=== PATIENT | male | born 1985 | race Hispanic/Latino ===

== ENCOUNTER 2021-02-03 06:04 | Emergency (ER) | payer SELFPAY ==
[2021-02-03 06:11] VITALS: BP 125/79
[2021-02-03] MEDS ORDERED: dexAMETHasone 4 MG/ML VIAL IM STA (10:44)
[2021-02-03] MEDS ORDERED: KETOROLAC 60 MG/2 ML INJ IM ONE (10:44)
--- NOTE | 2021-02-03 11:06 | Emergency Department Report ---
ED General Adult HPI - General Chief complaint: Extremity Injury, Lower Stated complaint: LT ANKLE PAIN Time Seen by Provider: 02/03/21 07:22 Source: patient Mode of arrival: Ambulatory Limitations: No Limitations - History of Present Illness Initial comments: 35-year-old male patient presents with complaints of sudden onset of left ankle pain starting last night. He denies any injury, numbness/tingling, or skin changes. He states the ankle is swollen and rates his pain as a 10/10 in severity. Pain worsens with movement, touch, and ambulation. Patient states Tylenol is not helping with this pain. He denies any history of gout or cancer or fever/chills/sweats. -: Sudden - Related Data Previous Rx's Medication Instructions Recorded Last Taken Type Naproxen 500 mg PO BID PRN 10 Days #20 02/03/21 Unknown Rx tablet Allergies Allergy/AdvReac Type Severity Reaction Status Date / Time No Known Allergies Allergy Unverified 02/03/21 06:08 ED Review of Systems ROS: Stated complaint: LT ANKLE PAIN Other details as noted in HPI Cardiovascular: denies: chest pain Genitourinary: denies: urgency, dysuria, hematuria, discharge, testicular pain Musculoskeletal: joint swelling, arthralgia Skin: denies: rash, lesions, change in color Neurological: abnormal gait. denies: numbness, paresthesias ED Past Medical Hx - Past Medical History Previous Medical History?: No - Surgical History Past Surgical History?: Yes Additional Surgical History: l arm (plat and pins), r ankle, left forefinger - Social History Smoking Status: Current Every Day Smoker Substance Use Type: Marijuana - Medications Home Medications: Home Medications Medication Instructions Recorded Confirmed Last Taken Type Naproxen 500 mg PO BID PRN 10 Days #20 02/03/21 Unknown Rx tablet ED Physical Exam - General Limitations: No Limitations General appearance: alert, in no apparent distress, obese - Head Head exam: Present: atraumatic, normocephalic - Eye Eye exam: Present: normal appearance - Respiratory Respiratory exam: Absent: respiratory distress - Cardiovascular Cardiovascular Exam: Present: regular rate, normal rhythm - Expanded Lower Extremity Exam Left Ankle exam: Present: tenderness (Medial ankle), swelling (Mild warmth to joint noted). Absent: ecchymosis, deformity, erythema Foot/Toe exam: Present: full ROM Neuro vascular tendon exam: Absent: pulse deficit, sensory deficit, pallor Gait: Positive: unable to bear weight - Neurological Exam Neurological exam: Present: alert, oriented X3 - Psychiatric Psychiatric exam: Present: normal affect, normal mood - Skin Skin exam: Present: warm, dry, intact, normal color. Absent: rash ED Course Vital Signs 02/03/21 06:09 Temperature 98.1 F Pulse Rate 96 H Respiratory 18 Rate Blood Pressure 125/79 O2 Sat by Pulse 98 Oximetry ED Medical Decision Making - Radiology Data Radiology results: report reviewed Left ankle radiograph, 3 views. HISTORY: Pain after injury. COMPARISON: None FINDINGS: 6 mm lucency at the medial talar dome is suspicious for osteochondral defect. Chronicity of this finding is indeterminate. Otherwise, there is no evidence of acute fracture or malalignment. Ankle mortise is symmetric. There is soft tissue swelling about the ankle. IMPRESSION: Suspected small osteochondral defect of the medial talar dome. - Medical Decision Making 35-year-old male patient presents with complaints of sudden onset of left ankle pain starting last night. He denies any injury, numbness/tingling, or skin changes. He states the ankle is swollen and rates his pain as a 10/10 in severity. Pain worsens with movement, touch, and ambulation. Patient states Tylenol is not helping with this pain. He denies any history of gout or cancer or fever/chills/sweats. X-ray shows osteochondral defect in area of pain and swelling. Mild improvement in pain with Toradol and Decadron. Patient placed in Hubert wrap, ankle stirrup, and provided with crutches. Recommend rice method for treatment and NSAIDs. Patient to follow-up with orthopedics in 3 days. His vitals are normal, he is nontoxic-appearing, he is stable for discharge home. Strict return precautions were discussed in detail with patient verbalized understanding. Critical care attestation.: If time is entered above; I have spent that time in minutes in the direct care of this critically ill patient, excluding procedure time. ED Disposition Clinical Impression: Osteochondral defect, Pain and swelling of ankle Disposition: - TO HOME OR SELFCARE Is pt being admited?: No Condition: Stable Instructions: Ankle Pain Prescriptions: Naproxen 500 mg PO BID PRN 10 Days #20 tablet PRN Reason: pain Referrals: [facility] [Provider Group] - 3-5 Days Forms: Work/School Release Form(ED)
--- NOTE | 2021-02-03 11:27 | XRay Report ---
Left ankle radiograph, 3 views. HISTORY: Pain after injury. COMPARISON: None FINDINGS: 6 mm lucency at the medial talar dome is suspicious for osteochondral defect. Chronicity of this finding is indeterminate. Otherwise, there is no evidence of acute fracture or malalignment. An kle mortise is symmetric. There is soft tissue swelling about the ankle. IMPRESSION: Suspected small osteochondral defect of the medial talar dome. Signer Name: Jose Candelaria MD Signed: 02/03/2021 11:22 AM Workstation Name: [id number]
== END 2021-02-03 16:18 | disposition home or self-care (01) ==
LOC: ED 06:04
DX: M24.10 Other articular cartilage disorders, unspecified site (principal); M25.572 Pain in left ankle and joints of left foot; F17.200 Nicotine dependence, unspecified, uncomplicated; F12.90 Cannabis use, unspecified, uncomplicated; Z79.899 Other long term (current) drug therapy; Z98.890 Other specified postprocedural states
CPT/HCPCS: 73610; 96372; 99283; J1100; J1885